=== PATIENT | female | born 1965 | race Caucasian/White ===

== ENCOUNTER 2016-10-20 13:23 | Inpatient (IN) | payer OTHER ==
[~2016-10-20] VITALS: Ht 157.5 cm; Wt 76.4 kg
[2016-10-24] MEDS ORDERED: SEROQUEL400 MG PO (16:44)
[2016-10-24] MEDS ORDERED: TOPROL XL25 MG PO (16:44)
[2016-10-24] MEDS ORDERED: GLUCOPHAGE500 MG PO (16:45)
[2016-10-24] MEDS ORDERED: DOXEPIN HCL25 MG PO (16:46)
[2016-10-24] MEDS ORDERED: ESTRADIOL0.5 MG PO (16:46)
[2016-10-24] MEDS ORDERED: VALIUM2 MG PO (16:46)
[2016-10-24] MEDS ORDERED: REQUIP1 MG PO (16:47)
[2016-10-24] MEDS ORDERED: ACETAMINOPHEN325 MG PO (16:47)
[2016-10-24] MEDS ORDERED: ZOFRAN4 MG PO (16:47)
[2016-10-24] MEDS ORDERED: CELEXA40 MG PO (16:47)
[2016-10-24] MEDS ORDERED: CULTURELLE1 EACH PO (16:48)
[2016-10-24] MEDS ORDERED: IMITREX100 MG PO (16:48)
[2016-10-24] MEDS ORDERED: HYDROCODON-ACE1 EAC6 PO (16:49)
[2016-10-24] MEDS ORDERED: PHENERGAN25 M1 PO (16:49)
[2016-10-24] MEDS ORDERED: VANCOMYCIN HCL250 MG PO (16:50)
== END 2016-10-24 16:17 | disposition home or self-care (01) | DRG 372 ==
LOC: ER 13:23 → MED 17:02
PROVIDERS: ADMIT Internal Medicine
PROC: 02HV33Z Insertion of Infusion Device into Superior Vena Cava, Percutaneous Approach (ICD-10-PCS; principal; 2016-10-22)
DX: A04.7 Enterocolitis due to Clostridium difficile (principal); E87.2 Acidosis; E83.42 Hypomagnesemia; E87.6 Hypokalemia; E86.0 Dehydration; E11.9 Type 2 diabetes mellitus without complications; I10 Essential (primary) hypertension; F31.9 Bipolar disorder, unspecified; G25.81 Restless legs syndrome; G47.00 Insomnia, unspecified; F41.9 Anxiety disorder, unspecified; Z90.710 Acquired absence of both cervix and uterus; Z90.49 Acquired absence of other specified parts of digestive tract; Z88.8 Allergy status to other drugs, medicaments and biological substances; Z79.84 Long term (current) use of oral hypoglycemic drugs; Z79.899 Other long term (current) drug therapy; Z82.49 Family history of ischemic heart disease and other diseases of the circulatory system; Z81.8 Family history of other mental and behavioral disorders
CPT/HCPCS: 36415; 87507; C1751; J1650; J2550; Q9963

== ENCOUNTER 2016-10-20 13:23 | Emergency (ER) | payer OTHER | END 2016-10-20 17:01 | disposition critical access hospital (66) | LOC: LAB 13:23 → ER 13:23 → LAB 17:01 | DX: K52.9 Noninfective gastroenteritis and colitis, unspecified (principal); E11.9 Type 2 diabetes mellitus without complications; I10 Essential (primary) hypertension; F31.9 Bipolar disorder, unspecified; F41.9 Anxiety disorder, unspecified; Z90.710 Acquired absence of both cervix and uterus; Z90.49 Acquired absence of other specified parts of digestive tract; Z88.5 Allergy status to narcotic agent; Z88.8 Allergy status to other drugs, medicaments and biological substances; Z79.84 Long term (current) use of oral hypoglycemic drugs; Z79.899 Other long term (current) drug therapy | CPT/HCPCS: 36415; 87507; 96361; 96365; 96375 ==